=== PATIENT | female | born 1965 | race Caucasian/White ===

== ENCOUNTER 2024-11-07 12:25 | Day surgery (SDC) | payer OTHER ==
[~2024-11-07] VITALS: Ht 170.2 cm; Wt 74.0 kg
[2024-11-07] VITALS (10 sets, daily range): BP systolic 93–135; BP diastolic 56–72; PULSE 62–74; RESP 11–19; TEMP 97.8; O2SAT 95–100
[2024-11-07] MEDS: ceFAZolin 2gm in dextrose, iso 50 ML IV ONE (12:00)
[~2024-11-07 12:25] MED LIST: ASPI-1397 PO; CEPH500C2; ERGO500093 PO; HYDR-3973; famotidine 20mg tablet PO ONE; ringers solution, lacted 1,000 ML IV SCH
[2024-11-07] MEDS ORDERED: BUPIVAcaine 2.5mg/ml inj 50ml vial (contains preservative) ONE (12:47)
[2024-11-07] MEDS ORDERED: bacitracin 15gm ointment TP ONE (12:47)
[2024-11-07] MEDS ORDERED: morphine 2 MG/ML inj. syringe IV PRN (12:55)
[2024-11-07] MEDS ORDERED: ondansetron/PF 4mg/2ml inj IV PRN (12:55)
[2024-11-07] MEDS ORDERED: labetalol 20mg/4ml (5mg/ml) syringe IV PRN (12:55)
[2024-11-07] MEDS ORDERED: morphine 4 MG/ML inj SYRINge IV PRN (12:55)
[2024-11-07] MEDS ORDERED: ringers solution, lacted 1,000 ML IV SCH (12:55)
[2024-11-07] MEDS ORDERED: HYDROmorphone/PF 0.2 MG/ML SYRINGE IV PRN ×2 (12:55)
--- NOTE | 2024-11-07 13:00 | ELECTROCARDIOGRAPH REPORT ---
[facility] Test Date: 2024-11-07 Test Time: 12:57:50 Pat Name: GABY CALLAHAN Department: [facility]-PRE-OP Patient ID: [facility]-[id number] Room: Gender: F Incident Response Analyst: JORDAN : 1965 Requested By: RASHIDA KIRKPATRICK Order Number: [id number] Reading MD: Dr. MACEY Shelby Measurements Intervals [place] Rate: 66 P: 50 CA: 133 QRS: 41 QRSD: 95 T: 47 QT: 411 QTc: 431 Interpretive Statements Sinus rhythm Electronically Signed On 11-07-2024 17:23:[address] MACEY Shelby Please click the below link to view image of tracing.
[2024-11-07] MEDS ORDERED: midazolam 1 mg/ML 2ml injection ONE (13:24)
[2024-11-07] MEDS ORDERED: fentaNYL/PF 50MCG/1 ML 2ML syringe ONE (13:24)
[2024-11-07] MEDS ORDERED: propofol inj 20 ML IV ONE (13:24)
[2024-11-07] MEDS ORDERED: ROPIVAcaine 0.5% (5mg/ml) 30ml vial ONE (13:27)
[2024-11-07] MEDS ORDERED: sevoflurane 250ml liquid IH ONE (13:28)
[2024-11-07] MEDS ORDERED: dexamethasone sod phosphate 4mg/ml inj. ONE (13:29)
[2024-11-07] MEDS ORDERED: ondansetron/PF 4mg/2ml inj ONE (14:24)
[2024-11-07] MEDS: acetaminophen 1,000mg/100ml IV 100 ML IV PRN (15:55)
[2024-11-07] MEDS: ketorolac trometh 30MG/ML vial 30 MG/ML VIAL IV ONE (15:57)
[2024-11-07] MEDS: ondansetron 4mg rapidly disintigrating tab PO ONE (16:12)
== END 2024-11-07 16:54 | disposition home or self-care (01) ==
LOC: PAS 12:25
PROVIDERS: ATTEND Podiatrist Foot & Ankle Surgery
DX: G57.51 Tarsal tunnel syndrome, right lower limb (principal); M25.374 Other instability, right foot; M72.2 Plantar fascial fibromatosis; G89.18 Other acute postprocedural pain; M65.871 Other synovitis and tenosynovitis, right ankle and foot; Z79.899 Other long term (current) drug therapy
CPT/HCPCS: 27696; 28035; 28060; 28080; 28120; 64445; 64447; 80047; 93005; A6223; C1713; J0131; J0690; J1100; J1885; J2003; J2250; J2405; J2704; J2795; J3010; J7030; J7120; Z7506; Z7508; Z7512; A4215; A4618; A6449; A7000; J3490